=== PATIENT | female | born 1965 | race African-American/Black ===

== ENCOUNTER 2016-11-25 01:29 | Emergency (ER) | payer OTHER ==
[~2016-11-25] VITALS: Ht 165.1 cm; Wt 67.1 kg
[2016-11-25 01:48] VITALS: BP 165/86
[2016-11-25] MEDS ORDERED: traMADol 50 MG TABLET PO ONE (02:15)
[2016-11-25] MEDS ORDERED: IBUPROFEN 600 MG TABLET. PO ONE (02:15)
[2016-11-25] MEDS ORDERED: AZITHROMYCIN 250 MG TABLET. PO ONE (02:15)
[2016-11-25] MEDS ORDERED: TRAM-29 PO (02:29)
[2016-11-25] MEDS ORDERED: AZIT250T PO (02:29)
--- NOTE | 2016-11-25 02:29 | PHYS DOC ---
Past Medical History Past Medical History: High Cholesterol, Hypertension Past Surgical History: Alcohol Use: None Drug Use: None Adult General Chief Complaint Chief Complaint: EARACHE/EAR PAIN HPI HPI Patient is a 51 year old female who presents here today complaining of right ear pain that started earlier today. Patient denies any fevers (patient endorses tactile fevers only) shakes chills nausea vomiting diarrhea chest pain short of breath cough cold runny nose. Patient also complaining of a mild sore throat. Patient denies any trauma to her ear. Patient has any change in her hearing. Patient's past medical history significant for a defibrillator since responded and put in. Patient denies being on any anticoagulants. Patient's physical exam was significant for a significant amount of swelling to her right tympanic membrane with what appears to be supportive otitis media. Patient has no tenderness with palpation to her or call her mastoid. Patient has no mastoid bone tenderness. Patient is no drainage coming from the ear. A/P #1 otitis media. Patient was discharged home after Rocephin 1 g IM and Zithromax/Z-Jay. Patient is clinically hemodynamically stable. Patient was instructed to follow-up with her primary care physician for reevaluation within the next 2-3 days. Started to return to the ER if she starts having any severe headaches fevers or any other concerns. Review of Systems Review of Systems Constitutional: Denies fever or chills [] Eyes: Denies change in visual acuity, redness, or eye pain [] All other review systems are negative except as documented in history of present illness portion Current Medications Current Medications Current Medications Medications (Trade) Dose Ordered Sig/Miriam Start Time Stop Time Status Last Admin Dose Admin Azithromycin (Zithromax) 500 mg 1X ONCE 11/25/16 02:15 11/25/16 02:16 DC 11/25/16 02:36 500 MG Ibuprofen (Motrin) 600 mg 1X ONCE 11/25/16 02:15 11/25/16 02:16 DC 11/25/16 02:32 600 MG Tramadol HCl (Ultram) 50 mg 1X ONCE 11/25/16 02:15 11/25/16 02:16 DC 11/25/16 02:35 50 MG Allergies Allergies Allergies Coded Allergies Type Severity Reaction Last Updated Verified No Known Drug Allergies 11/25/16 No Physical Exam Physical Exam Constitutional: Well developed, well nourished, no acute distress, non-toxic appearance. [] HENT: Normocephalic, atraumatic, bilateral external ears normal, oropharynx moist, no oral exudates, nose normal. [] See above. Tympanic membrane evaluation Eyes: PERRLA, EOMI, conjunctiva normal, no discharge. [] Neck: Normal range of motion, no tenderness, supple, no stridor. [] Cardiovascular:Heart rate regular rhythm, no murmur [] Lungs & Thorax: Bilateral breath sounds clear to auscultation [] Abdomen: Bowel sounds normal, soft, no tenderness, no masses, no pulsatile masses. [] Skin: Warm, dry, no erythema, no rash. [] Back: No tenderness, no CVA tenderness. [] Extremities: No tenderness, no cyanosis, no clubbing, ROM intact, no edema. [] Neurologic: Alert and oriented X 3, normal motor function, normal sensory function, no focal deficits noted. [] Psychologic: Affect normal, judgement normal, mood normal. [] Current Patient Data Vital Signs Vital Signs Date Time Temp Pulse Resp B/P (MAP) Pulse Ox O2 Delivery O2 Flow Rate FiO2 11/25/16 02:35 16 100 Room Air 11/25/16 01:48 98.6 109 98.6 EKG EKG [] Radiology/Procedures Radiology/Procedures [] Course & Med Decision Making Course & Med Decision Making Pertinent Labs and Imaging studies reviewed. (See chart for details) [] Dragon Disclaimer Dragon Disclaimer This electronic medical record was generated, in whole or in part, using a voice recognition dictation system. Departure Departure Impression: Primary Impression: Otitis media, right Disposition: HOME, SELF-CARE Condition: IMPROVED Patient Instructions: Otitis Media, Adult Scripts Azithromycin (ZITHROMAX) 250 Mg Tablet 1 PKG PO UD, #6 TAB Prov: SILVANA MANRIQUEZ MD 11/25/16 Tramadol Hcl (ULTRAM) 50 Mg Tablet 1 TAB PO Q6HRS, #14 TAB Prov: SILVANA MANRIQUEZ MD 11/25/16 Problem Qualifiers Primary Impression: Otitis media, right Otitis media type: suppurative Chronicity: acute Recurrence: not specified as recurrent Spontaneous tympanic membrane rupture: without spontaneous rupture Qualified Codes: H66.001 - Acute suppurative otitis media without spontaneous rupture of ear drum, right ear SILVANA MANRIQUEZ MD November 25, 2016 02:29
== END 2016-11-25 02:56 | disposition home or self-care (01) ==
LOC: ER 01:29
DX: H66.001 Acute suppurative otitis media without spontaneous rupture of ear drum, right ear (principal); E78.00 Pure hypercholesterolemia, unspecified; I10 Essential (primary) hypertension
CPT/HCPCS: 99284; Q0144

== ENCOUNTER 2017-10-23 17:37 | Emergency (ER) | payer OTHER ==
[2017-10-23 18:59] LABS: BILIRUBIN,URINE NEGATIVE (NEG); CLARITY,URINE CLEAR; COLOR,URINE YELLOW; GLUCOSE,URINE NEGATIVE (NEG); NITRITE,URINE NEGATIVE (NEG); PH,URINE 5.5; PROTEIN,URINE NEGATIVE (NEG-TRACE)
[2017-10-23 19:08] LABS: BACTERIA,URINE MODERATE /HPF (0-FEW); RBC,URINE OCC /HPF (0-2); SQUAMOUS EPITHELIAL CELL,UR MANY /LPF
[2017-10-23 19:27] LABS: ADD MAN DIFF? NO
[2017-10-23 19:34] LABS: BASO % 0 % (0-3); EOS # 0.2 x10^3/uL (0.0-0.7); EOS % 2 % (0-3); HEMATOCRIT 36.9 % (36.0-47.0); HEMOGLOBIN 12.4 g/dL (12.0-15.5); LYMPH # 2.5 x10^3/uL (1.0-4.8); LYMPH % 37 % (24-48); MEAN CORPUSCULAR HEMOGLOBIN 30 pg (25-35); MEAN CORPUSCULAR HGB CONC 34 g/dL (31-37); MEAN CORPUSCULAR VOLUME 90 fL (79-100); MONO # 0.4 x10^3/uL (0.0-1.1); MONO % 6 % (0-9); NEUT # 3.6 x10^3uL (1.8-7.7); NEUT % 54 % (31-73); PLATELET COUNT 326 x10^3/uL (140-400); RED BLOOD COUNT 4.12 x10^6/uL (3.50-5.40); RED CELL DISTRIBUTION WIDTH 13.8 % (11.5-14.5); WHITE BLOOD COUNT 6.7 x10^3/uL (4.0-11.0)
[2017-10-23 19:46] LABS: ANION GAP 10 (6-14); BLOOD UREA NITROGEN 9 mg/dL (7-20); CALCIUM 9.9 mg/dL (8.5-10.1); CARBON DIOXIDE 28 mmol/L (21-32); CHLORIDE 105 mmol/L (98-107); CREATININE 0.8 mg/dL (0.6-1.0); GFR 90.4; GLUCOSE 105 mg/dL (70-99); POTASSIUM 3.3 mmol/L (3.5-5.1); SODIUM 143 mmol/L (136-145)
[2017-10-23] MEDS: FAMOTIDINE 20 MG/2 ML VIAL IVP (19:46)
[2017-10-23] MEDS: ONDANSETRON PF 4 MG/2 ML VIAL. IV (19:46)
[2017-10-23] MEDS: IV NORMAL SALINE 1000ML BAG 1,000 ML IV (19:46)
[2017-10-23] MEDS: 0.9 % SODIUM CHLORIDE 10 ML DISP.SYRIN. IV (19:47)
[2017-10-23 19:51] LABS: ALBUMIN 4.1 g/dL (3.4-5.0); ALK PHOS 90 U/L (46-116); ALT (SGPT) 18 U/L (14-59); AST (SGOT) 12 U/L (15-37); DIRECT BILIRUBIN 0.1 mg/dL (0.0-0.2); LIPASE 81 U/L (73-393); TOTAL BILIRUBIN 0.5 mg/dL (0.2-1.0); TOTAL PROTEIN 7.5 g/dL (6.4-8.2)
[2017-10-23 19:53] LABS: TROPONINI < 0.017 ng/mL (0.000-0.055)
[2017-10-23] MEDS ORDERED: CONTRAST GIVEN MC (20:00)
[2017-10-23 20:01] LABS: CKMB MASS < 0.5 ng/mL (0.0-3.6); CREATINE KINASE 64 U/L (26-192)
[2017-10-23] MEDS: IOHEXOL 300 MG/ML 100ML VIAL. IV (20:06)
== END 2017-10-23 21:19 | disposition home or self-care (01) ==
LOC: ER 17:37
DX: N39.0 Urinary tract infection, site not specified (principal); K29.60 Other gastritis without bleeding; I10 Essential (primary) hypertension
CPT/HCPCS: 36415; 74177; 80048; 80076; 81001; 82553; 83690; 84484; 85025; 87086; 93005; 96374; 96375; 96376; 99285-25; J2405; J7030; Q9967; S0028

== ENCOUNTER 2019-03-03 01:24 | Inpatient (IN) | payer BC, OTHER ==
[~2019-03-03] VITALS: Ht 165.1 cm; Wt 61.2 kg
[~2019-03-03 01:24] MED LIST: AZIT250T PO; CIPR500T94 PO; OMEP20TA63 PO; TRAM-48 PO; TRAM1TAB4 PO
[2019-03-03] MEDS ORDERED: KETOROLAC 30 MG/ML VIAL. IV ONE (02:45)
[2019-03-03] MEDS ORDERED: ONDANSETRON PF 4 MG/2 ML VIAL. IV ONE (02:45)
[2019-03-03] MEDS ORDERED: IV NORMAL SALINE 1000ML BAG 1,000 ML IV SCH (02:45)
[2019-03-03 03:14] LABS: BASO % 1 % (0-3); EOS % 0 % (0-3); HEMATOCRIT 39.7 % (36.0-47.0); HEMOGLOBIN 13.5 g/dL (12.0-15.5); LYMPH # 1.1 x10^3/uL (1.0-4.8); LYMPH % 19 % (24-48); MEAN CORPUSCULAR HEMOGLOBIN 31 pg (25-35); MEAN CORPUSCULAR HGB CONC 34 g/dL (31-37); MEAN CORPUSCULAR VOLUME 90 fL (79-100); MONO # 0.2 x10^3/uL (0.0-1.1); MONO % 4 % (0-9); NEUT # 4.6 x10^3/uL (1.8-7.7); NEUT % 77 % (31-73); PLATELET COUNT 319 x10^3/uL (140-400); RED BLOOD COUNT 4.42 x10^6/uL (3.50-5.40); RED CELL DISTRIBUTION WIDTH 13.6 % (11.5-14.5); WHITE BLOOD COUNT 6.1 x10^3/uL (4.0-11.0)
[2019-03-03 03:22] LABS: CALCIUM 10.1 mg/dL (8.5-10.1); CREATININE 0.9 mg/dL (0.6-1.0); GFR 78.7; POTASSIUM 3.6 mmol/L (3.5-5.1)
[2019-03-03 03:29] LABS: ALBUMIN 4.1 g/dL (3.4-5.0); ALBUMIN/GLOBULIN RATIO 1.1 (1.0-1.7); TOTAL BILIRUBIN 1.7 mg/dL (0.2-1.0); TOTAL PROTEIN 7.9 g/dL (6.4-8.2)
[2019-03-03] MEDS ORDERED: PIPERACILLIN/TAZOBACTAM 3.375 GM in IV NORMAL SALINE 50ML 50 ML IV ONE (04:00)
[2019-03-03] MEDS ORDERED: fentaNYL PF VIAL 100 MCG/2 ML VIAL IV PRN (04:00)
[2019-03-03] MEDS ORDERED: ONDANSETRON PF 4 MG/2 ML VIAL. IV PRN (04:00)
--- NOTE | 2019-03-03 04:03 | RAD ---
Right upper quadrant ultrasound dated 03/03/2019. No comparison available. Clinical data indication: Right upper quadrant pain. FINDINGS: Hepatic mass. Intrahepatic biliary tree is normal in caliber. The common bile duct is mildly dilated measuring up to 9 mm diameter. No intraductal filling defect is apparent. Echogenic shadowing foci in the gallbladder lumen consistent with stones. No wall thickening or pericholecystic fluid. Positive Arias's sign. Right kidney measures 9.5 cm in length without hydronephrosis. Left kidney was not imaged. Limited visualized portions of pancreas aorta and IVC are unremarkable. No significant ascites. IMPRESSION: 1. Cholelithiasis and positive sonographic Arias's sign. Acute cholecystitis cannot be excluded. 2. Mild dilation of the extrahepatic biliary tree without discrete filling defect. Could be a normal variant. Correlate with laboratory results. Electronically signed by: Mino Stock MD (03/03/2019 4:00 AM) [facility]
--- NOTE | 2019-03-03 04:12 | PHYS DOC ---
Past Medical History Past Medical History: GERD, High Cholesterol, Hypertension, Other Additional Past Medical Histor: SEASONAL ALLERGIES Past Surgical History: , Other Additional Past Surgical Histo: Left ear sx Alcohol Use: None Drug Use: None Adult General Chief Complaint Chief Complaint: ABDOMINAL PAIN [facility] HPI Patient is a 53 year old female who presents with complaining of abdominal pain. Patient complaining of gradual onset of epigastric and right upper qu adrant pain since yesterday as a constant pain with radiation to her back and associated with nausea. Patient rated her pain as a 10 over 10 and denies shortness of breath, fever and chills, diarrhea and constipation, urinary symptom. Patient denies history of the same pain. Review of Systems Review of Systems Constitutional: Denies fever or chills [] Eyes: Denies change in visual acuity, redness, or eye pain [] HENT: Denies nasal congestion or sore throat [] Respiratory: Denies cough or shortness of breath [] Cardiovascular: No additional information not addressed in HPI [] GI: Reports abdominal pain, nausea, vomiting, bloody stools or diarrhea [] : Denies dysuria or hematuria [] Musculoskeletal: Denies back pain or joint pain [] Integument: Denies rash or skin lesions [] Neurologic: Denies headache, focal weakness or sensory changes [] Endocrine: Denies polyuria or polydipsia [] All other systems were reviewed and found to be within normal limits, except as documented in this note. Current Medications Current Medications Current Medications Medications (Trade) Dose Ordered Sig/[facility] Start Time Stop Time Status Last Admin Dose Admin Ketorolac Tromethamine (Toradol 30mg Vial) 30 mg 1X ONCE 03/03/19 02:45 03/03/19 02:46 DC 03/03/19 03:09 30 MG Ondansetron HCl (Zofran) 4 mg 1X ONCE 03/03/19 02:45 03/03/19 02:46 DC 03/03/19 03:09 4 MG Sodium Chloride 1,000 ml @ 1,000 mls/hr Q1H 03/03/19 02:45 03/03/19 03:44 DC 03/03/19 03:09 1,000 MLS/HR Allergies Allergies Allergies Coded Allergies Type Severity Reaction Last Updated Verified amlodipine Allergy Unknown Swelling 03/03/19 Yes Physical Exam Physical Exam Constitutional: Well developed, well nourished, moderate distress, non-toxic appearance. [] HENT: Normocephalic, atraumatic, oropharynx dry. Eyes: PERRLA, EOMI, conjunctiva normal, no discharge. [] Neck: Normal range of motion, no tenderness, supple, no stridor. [] Cardiovascular:Heart rate regular rhythm, no murmur [] Lungs & Thorax: Bilateral breath sounds clear to auscultation [] Abdomen: Bowel sounds normal, soft, right upper quadrant tenderness and positive Arias sign, no masses, no pulsatile masses. [] Skin: Warm, dry, no erythema, no rash. [] Back: No tenderness, no CVA tenderness. [] Extremities: No tenderness, no cyanosis, no clubbing, ROM intact, no edema. [] Neurologic: Alert and oriented X 3, normal motor function, normal sensory function, no focal deficits noted. [] Psychologic: Affect normal, judgement normal, mood normal. [] Current Patient Data Vital Signs Vital Signs Date Time Temp Pulse Resp B/P (MAP) Pulse Ox O2 Delivery O2 Flow Rate FiO2 03/03/19 03:49 90 139/77 (97) 99 Room Air 03/03/19 01:35 98.2 16 98.2 Lab Values Laboratory Tests Test 03/03/19 02:23 White Blood Count 6.1 x10^3/uL (4.0-11.0) Red Blood Count 4.42 x10^6/uL (3.50-5.40) Hemoglobin 13.5 g/dL (12.0-15.5) Hematocrit 39.7 % (36.0-47.0) Mean Corpuscular Volume 90 fL (79-100) Mean Corpuscular Hemoglobin 31 pg (25-35) Mean Corpuscular Hemoglobin Concent 34 g/dL (31-37) Red Cell Distribution Width 13.6 % (11.5-14.5) Platelet Count 319 x10^3/uL (140-400) Neutrophils (%) (Auto) 77 % (31-73) H Lymphocytes (%) (Auto) 19 % (24-48) L Monocytes (%) (Auto) 4 % (0-9) Eosinophils (%) (Auto) 0 % (0-3) Basophils (%) (Auto) 1 % (0-3) Neutrophils # (Auto) 4.6 x10^3/uL (1.8-7.7) Lymphocytes # (Auto) 1.1 x10^3/uL (1.0-4.8) Monocytes # (Auto) 0.2 x10^3/uL (0.0-1.1) Eosinophils # (Auto) 0.0 x10^3/uL (0.0-0.7) Basophils # (Auto) 0.0 x10^3/uL (0.0-0.2) Sodium Level 140 mmol/L (136-145) Potassium Level 3.6 mmol/L (3.5-5.1) Chloride Level 103 mmol/L (98-107) Carbon Dioxide Level 28 mmol/L (21-32) Anion Gap 9 (6-14) Blood Urea Nitrogen 9 mg/dL (7-20) Creatinine 0.9 mg/dL (0.6-1.0) Estimated GFR (Cockcroft-Gault) 78.7 BUN/Creatinine Ratio 10 (6-20) Glucose Level 124 mg/dL (70-99) H Calcium Level 10.1 mg/dL (8.5-10.1) Total Bilirubin 1.7 mg/dL (0.2-1.0) H Aspartate Amino Transferase (AST) 350 U/L (15-37) H Alanine Aminotransferase (ALT) 260 U/L (14-59) H Alkaline Phosphatase 91 U/L (46-116) Creatine Kinase 81 U/L (26-192) Total Protein 7.9 g/dL (6.4-8.2) Albumin 4.1 g/dL (3.4-5.0) Albumin/Globulin Ratio 1.1 (1.0-1.7) Lipase 59 U/L (73-393) L Laboratory Tests 03/03/19 02:23 Laboratory Tests 03/03/19 02:23 EKG EKG [] Radiology/Procedures Radiology/Procedures [][facility] [address] [place], [place] [id number] IMAGING REPORT Signed PATIENT: SHAYNA REDNACCOUNT: [id number] : 1965 LOCATION: ER AGE: 53 SEX: F EXAM STATUS: REG ER ORD. PHYSICIAN: ALEXY FONTANEZ MD REASON: upper quadrant pain PROCEDURE: ABDOMEN LTD Right upper quadrant ultrasound dated 03/03/2019. No comparison available. Clinical data indication: Right upper quadrant pain. FINDINGS: Hepatic mass. Intrahepatic biliary tree is normal in caliber. The common bile duct is mildly dilated measuring up to 9 mm diameter. No intraductal filling defect is apparent. Echogenic shadowing foci in the gallbladder lumen consistent with stones. No wall thickening or pericholecystic fluid. Positive Arias's sign. Right kidney measures 9.5 cm in length without hydronephrosis. Left kidney was not imaged. Limited visualized portions of pancreas aorta and IVC are unremarkable. No significant ascites. IMPRESSION: 1. Cholelithiasis and positive sonographic Arias's sign. Acute cholecystitis cannot be excluded. 2. Mild dilation of the extrahepatic biliary tree without discrete filling defect. Could be a normal variant. Correlate with laboratory results. Electronically signed by: Mino Stock MD (03/03/2019 4:00 AM) [facility] DICTATED and SIGNED BY: MINO STOCK MD DATE: 03/03/19 0400 Course & Med Decision Making Course & Med Decision Making Pertinent Labs and Imaging studies reviewed. (See chart for details) Patient ER showed 53-year-old female patient with complaining of right upper quadrant pain. Patient had positive morphine site and elevation of liver function tests and positive sonographic Arias sign with inflammation of one of gallbladder. Patient was informed of the test results and plan of care for admission and possible surgery. Patient wanted to go home and then change her mind and decided to stay and wanted to take antibiotic without surgery. Patient requiring admission for further evaluation and treatment. Discussed with Dr. Cao who is in agreement with admission. Discussed findings and plan with patient and family, who acknowledge understanding and agreement. Dragon Disclaimer Dragon Disclaimer This electronic medical record was generated, in whole or in part, using a voice recognition dictation system. Departure Departure Impression: Primary Impression: Acute cholecystitis Disposition: 09 ADMITTED INPATIENT (at 0359) Admitting Physician: Dio Cao (accepted admission at 0259) Condition: IMPROVED Referrals: NGHIA SALEH MD (PCP) ALEXY FONTANEZ MD Mar 03, 2019 04:12
[2019-03-03] MEDS: IV NORMAL SALINE 1000ML BAG 1,000 ML IV SCH ×2 (04:54→09:48)
[2019-03-03 05:20] VITALS: BP 129/73
[2019-03-03] MEDS ORDERED: LOSA-73 PO (06:46)
[2019-03-03] MEDS ORDERED: MULT1TAB52 PO (06:46)
[2019-03-03] MEDS ORDERED: CHOL100013 PO (06:46)
[2019-03-03] MEDS ORDERED: ASPI81TA50 PO (06:46)
[2019-03-03 07:00] VITALS: BP 145/72
[2019-03-03 11:00] VITALS: BP 136/74
--- NOTE | 2019-03-03 11:12 | PDOC1 ---
History and Physical Date of Admission Date of Admission 03/03/19 Identification/Chief Complaint Chief Complaint Abdominal pain Source Source: Patient History of Present Illness History of Present Illness Pt states that she started having RUQ pain yesterday around 3-3:30pm after getting off of work. She thought it might be related to her acid reflux as she had not taken her zantac yet that day. Took it when she got home and it did not really seem to help. Ate some chili hamburger helper for dinner and pain started worsening. Pt says that she was not wanting to come to the hospital but around 1am, she still was unable to sleep because of the pain and it continued to intensify. Pt was found to have cholelithiasis with +Arias's sign. Pt not wanting to have surgery and is hoping to go home tonight. Pain improved with pain medication. Past Medical History Cardiovascular: HTN Pulmonary: No pertinent hx GI: GERD Heme/Onc: No pertinent hx Hepatobiliary: No pertinent hx Psych: No pertinent hx Rheumatologic: No pertinent hx Infectious disease: No pertinent hx ENT: No pertinent hx Renal/: No pertinent hx Endocrine: No pertinent hx Dermatology: No pertinent hx Past Surgical History Past Surgical History: Family History Family History: Cancer Social History Smoke: Quit ALCOHOL: none Drugs: None Current Medications Current Medications Current Medications Medications (Trade) Dose Ordered Sig/Miriam Start Time Stop Time Status Last Admin Dose Admin Fentanyl Citrate (Fentanyl 2ml Vial) 50 mcg PRN Q1HR PRN 03/03/19 04:00 03/03/19 09:00 DC Ketorolac Tromethamine (Toradol 30mg Vial) 30 mg 1X ONCE 03/03/19 02:45 03/03/19 02:46 DC 03/03/19 03:09 30 MG Metronidazole 100 ml @ 100 mls/hr 1X ONCE 03/03/19 04:00 03/03/19 04:59 DC 03/03/19 09:49 100 MLS/HR Ondansetron HCl (Zofran) 4 mg PRN Q8HRS PRN 03/03/19 04:00 03/03/19 09:00 DC Piperacillin Sod/ Tazobactam Sod 3.375 gm/Sodium Chloride 50 ml @ 100 mls/hr 1X ONCE 03/03/19 04:00 03/03/19 04:29 DC 03/03/19 04:58 100 MLS/HR Sodium Chloride 1,000 ml @ 150 mls/hr Q6H40M 03/03/19 04:00 03/04/19 03:59 03/03/19 09:49 150 MLS/HR Allergies Allergies Allergies Coded Allergies Type Severity Reaction Last Updated Verified amlodipine Allergy Unknown Swelling 03/03/19 Yes ciprofloxacin Allergy Unknown Unknown 03/03/19 Yes ROS Review of System CONSTITUTIONAL: No fever or chills EYES: No recent changes SKIN: No rash or itching CARDIOVASCULAR: No chest pain, syncope, palpitations, or edema RESPIRATORY: No SOB or cough GASTROINTESTINAL: No nausea, vomiting, +RUQ pain NEUROLOGICAL: No headaches or weakness ENDOCRINE: No cold or heat intolerance GENITOURINARY: No urgency or frequency of urination MUSCULOSKELETAL: No back pain or joint pain LYMPHATICS: No enlarged lymph nodes PSYCHIATRIC: No anxiety or depression Physical Exam Physical Exam GEN.: No apparent distress. Alert and oriented. HEENT: Head is normocephalic, atraumatic NECK: Supple. LUNGS: Clear to auscultation. HEART: RRR, S1, S2 present. Peripheral pulses intact ABDOMEN: Soft, nontender. Positive bowel sounds. EXTREMITIES: Without any cyanosis. NEUROLOGIC: Normal speech, normal tone PSYCHIATRIC: Normal affect, normal mood. SKIN: No ulcerations Vitals Vitals Vital Signs Date Time Temp Pulse Resp B/P (MAP) Pulse Ox O2 Delivery O2 Flow Rate FiO2 03/03/19 07:00 97.9 69 18 145/72 (96) 97 Room Air 97.9 Labs Labs Laboratory Tests Test 03/03/19 02:23 White Blood Count 6.1 x10^3/uL (4.0-11.0) Red Blood Count 4.42 x10^6/uL (3.50-5.40) Hemoglobin 13.5 g/dL (12.0-15.5) Hematocrit 39.7 % (36.0-47.0) Mean Corpuscular Volume 90 fL (79-100) Mean Corpuscular Hemoglobin 31 pg (25-35) Mean Corpuscular Hemoglobin Concent 34 g/dL (31-37) Red Cell Distribution Width 13.6 % (11.5-14.5) Platelet Count 319 x10^3/uL (140-400) Neutrophils (%) (Auto) 77 % (31-73) Lymphocytes (%) (Auto) 19 % (24-48) Monocytes (%) (Auto) 4 % (0-9) Eosinophils (%) (Auto) 0 % (0-3) Basophils (%) (Auto) 1 % (0-3) Neutrophils # (Auto) 4.6 x10^3/uL (1.8-7.7) Lymphocytes # (Auto) 1.1 x10^3/uL (1.0-4.8) Monocytes # (Auto) 0.2 x10^3/uL (0.0-1.1) Eosinophils # (Auto) 0.0 x10^3/uL (0.0-0.7) Basophils # (Auto) 0.0 x10^3/uL (0.0-0.2) Sodium Level 140 mmol/L (136-145) Potassium Level 3.6 mmol/L (3.5-5.1) Chloride Level 103 mmol/L (98-107) Carbon Dioxide Level 28 mmol/L (21-32) Anion Gap 9 (6-14) Blood Urea Nitrogen 9 mg/dL (7-20) Creatinine 0.9 mg/dL (0.6-1.0) Estimated GFR (Cockcroft-Gault) 78.7 BUN/Creatinine Ratio 10 (6-20) Glucose Level 124 mg/dL (70-99) Calcium Level 10.1 mg/dL (8.5-10.1) Total Bilirubin 1.7 mg/dL (0.2-1.0) Aspartate Amino Transf (AST/SGOT) 350 U/L (15-37) Alanine Aminotransferase (ALT/SGPT) 260 U/L (14-59) Alkaline Phosphatase 91 U/L (46-116) Creatine Kinase 81 U/L (26-192) Total Protein 7.9 g/dL (6.4-8.2) Albumin 4.1 g/dL (3.4-5.0) Albumin/Globulin Ratio 1.1 (1.0-1.7) Lipase 59 U/L (73-393) Laboratory Tests Test 03/03/19 02:23 White Blood Count 6.1 x10^3/uL (4.0-11.0) Red Blood Count 4.42 x10^6/uL (3.50-5.40) Hemoglobin 13.5 g/dL (12.0-15.5) Hematocrit 39.7 % (36.0-47.0) Mean Corpuscular Volume 90 fL (79-100) Mean Corpuscular Hemoglobin 31 pg (25-35) Mean Corpuscular Hemoglobin Concent 34 g/dL (31-37) Red Cell Distribution Width 13.6 % (11.5-14.5) Platelet Count 319 x10^3/uL (140-400) Neutrophils (%) (Auto) 77 % (31-73) Lymphocytes (%) (Auto) 19 % (24-48) Monocytes (%) (Auto) 4 % (0-9) Eosinophils (%) (Auto) 0 % (0-3) Basophils (%) (Auto) 1 % (0-3) Neutrophils # (Auto) 4.6 x10^3/uL (1.8-7.7) Lymphocytes # (Auto) 1.1 x10^3/uL (1.0-4.8) Monocytes # (Auto) 0.2 x10^3/uL (0.0-1.1) Eosinophils # (Auto) 0.0 x10^3/uL (0.0-0.7) Basophils # (Auto) 0.0 x10^3/uL (0.0-0.2) Sodium Level 140 mmol/L (136-145) Potassium Level 3.6 mmol/L (3.5-5.1) Chloride Level 103 mmol/L (98-107) Carbon Dioxide Level 28 mmol/L (21-32) Anion Gap 9 (6-14) Blood Urea Nitrogen 9 mg/dL (7-20) Creatinine 0.9 mg/dL (0.6-1.0) Estimated GFR (Cockcroft-Gault) 78.7 BUN/Creatinine Ratio 10 (6-20) Glucose Level 124 mg/dL (70-99) Calcium Level 10.1 mg/dL (8.5-10.1) Total Bilirubin 1.7 mg/dL (0.2-1.0) Aspartate Amino Transf (AST/SGOT) 350 U/L (15-37) Alanine Aminotransferase (ALT/SGPT) 260 U/L (14-59) Alkaline Phosphatase 91 U/L (46-116) Creatine Kinase 81 U/L (26-192) Total Protein 7.9 g/dL (6.4-8.2) Albumin 4.1 g/dL (3.4-5.0) Albumin/Globulin Ratio 1.1 (1.0-1.7) Lipase 59 U/L (73-393) VTE Prophylaxis Ordered VTE Prophylaxis Devices: Yes VTE Pharmacological Prophylaxi: No Assessment/Plan Assessment/Plan Pt is a 53yo AAF admitted for symptomatic cholelithiasis 1)Symptomatic cholelithiasis- normal WBC, afebrile. Pt with elevated liver enzymes and mild dilation of extrahepatic biliary tree. Pt is not wanting surgery and is wanting to go home tonight. GI consulted. Pain improved with pain medication 2)HTN- will continue pt's Losartan 50mg 3)Hyperglycemia- HbA1C pending PRINCESS JOHNSON MD Mar 03, 2019 11:12
[2019-03-03] MEDS ORDERED: oxyCODONE IR 5 MG TABLET PO PRN (11:15)
[2019-03-03] MEDS ORDERED: LOSARTAN POTASSIUM 50 MG TABLET. PO SCH (11:15)
--- NOTE | 2019-03-03 13:13 | PDOC2 ---
GI CONSULT Reason For Consult: symptomatic cholelithiasis, dilated biliary duct, no surgery HPI: HPI: 53 y/o female admitted through ER. Gradual onset of RUQ and epigastric burning yesterday, no radiation, worse w/ eating, and associated w/ vomiting x 1. Bili 1.7, AST 350, ALT 260, AP 91, normal lipase Cholelithiasis w/ +Arias's and 9mm CBD on US. She does not wish to pursue cholecystectomy. H/o "silent GERD" diagnosed by ENT who she saw for fullness in her ears. For those symptoms or "bubbling" in upper abdomen, takes Zantac regularly. No dysphagia, chronic n/v or abd pain, diarrhea, constipation, hematochezia, melena, change in appetite, or weight loss. No previous EGD. Reportedly normal colonoscopy in [place] ~10 years ago. No liver, pancreas, or PUD history. Occasional ibuprofen. PMH: PMH: GERD, HTN, HLD, allergic rhinitis left ear surgery, x 2 FH: Family History: Cancer (renal) Social History: Smoke: Quit ALCOHOL: none Drugs: None ROS: GEN: Denies fevers, chills, sweats HEENT: Denies blurred vision, sore throat CV: Denies chest pain RESP: Denies shortness of air, cough GI: Per HPI : Denies hematuria, dysuria ENDO: Denies weight changes NEURO: Denies confusion, dizziness MSK: Denies weakness, joint pain/swelling SKIN: Denies jaundice, pruritus Vitals: Vitals: Vital Signs Date Time Temp Pulse Resp B/P (MAP) Pulse Ox O2 Delivery O2 Flow Rate FiO2 03/03/19 07:00 97.9 69 18 145/72 (96) 97 Room Air 97.9 Labs: Labs: Laboratory Tests Test 03/03/19 02:23 White Blood Count 6.1 x10^3/uL (4.0-11.0) Red Blood Count 4.42 x10^6/uL (3.50-5.40) Hemoglobin 13.5 g/dL (12.0-15.5) Hematocrit 39.7 % (36.0-47.0) Mean Corpuscular Volume 90 fL (79-100) Mean Corpuscular Hemoglobin 31 pg (25-35) Mean Corpuscular Hemoglobin Concent 34 g/dL (31-37) Red Cell Distribution Width 13.6 % (11.5-14.5) Platelet Count 319 x10^3/uL (140-400) Neutrophils (%) (Auto) 77 % (31-73) Lymphocytes (%) (Auto) 19 % (24-48) Monocytes (%) (Auto) 4 % (0-9) Eosinophils (%) (Auto) 0 % (0-3) Basophils (%) (Auto) 1 % (0-3) Neutrophils # (Auto) 4.6 x10^3/uL (1.8-7.7) Lymphocytes # (Auto) 1.1 x10^3/uL (1.0-4.8) Monocytes # (Auto) 0.2 x10^3/uL (0.0-1.1) Eosinophils # (Auto) 0.0 x10^3/uL (0.0-0.7) Basophils # (Auto) 0.0 x10^3/uL (0.0-0.2) Sodium Level 140 mmol/L (136-145) Potassium Level 3.6 mmol/L (3.5-5.1) Chloride Level 103 mmol/L (98-107) Carbon Dioxide Level 28 mmol/L (21-32) Anion Gap 9 (6-14) Blood Urea Nitrogen 9 mg/dL (7-20) Creatinine 0.9 mg/dL (0.6-1.0) Estimated GFR (Cockcroft-Gault) 78.7 BUN/Creatinine Ratio 10 (6-20) Glucose Level 124 mg/dL (70-99) Calcium Level 10.1 mg/dL (8.5-10.1) Total Bilirubin 1.7 mg/dL (0.2-1.0) Aspartate Amino Transf (AST/SGOT) 350 U/L (15-37) Alanine Aminotransferase (ALT/SGPT) 260 U/L (14-59) Alkaline Phosphatase 91 U/L (46-116) Creatine Kinase 81 U/L (26-192) Total Protein 7.9 g/dL (6.4-8.2) Albumin 4.1 g/dL (3.4-5.0) Albumin/Globulin Ratio 1.1 (1.0-1.7) Lipase 59 U/L (73-393) Allergies: Coded Allergies: amlodipine (Verified Allergy, Unknown, Swelling , 03/03/19) ciprofloxacin (Verified Allergy, Unknown, Unknown, 03/03/19) Medications: Current Medications Medications (Trade) Dose Ordered Sig/Miriam Route PRN Reason Start Time Stop Time Status Last Admin Dose Admin Sodium Chloride 1,000 ml @ 1,000 mls/hr Q1H IV 03/03/19 02:45 03/03/19 03:44 DC 03/03/19 03:09 Ondansetron HCl (Zofran) 4 mg 1X ONCE IV 03/03/19 02:45 03/03/19 02:46 DC 03/03/19 03:09 Ketorolac Tromethamine (Toradol 30mg Vial) 30 mg 1X ONCE IV 03/03/19 02:45 03/03/19 02:46 DC 03/03/19 03:09 Piperacillin Sod/ Tazobactam Sod 3.375 gm/Sodium Chloride 50 ml @ 100 mls/hr 1X ONCE IV 03/03/19 04:00 03/03/19 04:29 DC 03/03/19 04:58 Metronidazole 100 ml @ 100 mls/hr 1X ONCE IV 03/03/19 04:00 03/03/19 04:59 DC 03/03/19 09:49 Sodium Chloride 1,000 ml @ 150 mls/hr Q6H40M IV 03/03/19 04:00 03/04/19 03:59 03/03/19 09:49 Imaging: Imaging: Abd US FINDINGS: Hepatic mass. Intrahepatic biliary tree is normal in caliber. The common bile duct is mildly dilated measuring up to 9 mm diameter. No intraductal filling defect is apparent. Echogenic shadowing foci in the gallbladder lumen consistent with stones. No wall thickening or pericholecystic fluid. Positive Arias's sign. Right kidney measures 9.5 cm in length without hydronephrosis. Left kidney was not imaged. Limited visualized portions of pancreas aorta and IVC are unremarkable. No sig nificant ascites. IMPRESSION: 1. Cholelithiasis and positive sonographic Arias's sign. Acute cholecystitis cannot be excluded. 2. Mild dilation of the extrahepatic biliary tree without discrete filling defect. Could be a normal variant. Correlate with laboratory results. PE: GEN: NAD - and mother present HEENT: Atraumatic, PERRL LUNGS: CTAB HEART: RRR ABD: NABS, S/ND/NT EXTREMITY: No edema SKIN: No rashes, no jaundice NEURO/PSYCH: A & O �3 A/P: A/P: RUQ/epigastric pain, vomiting - resolved Abnormal LFTs Cholelithiasis, dilated CBD GERD CRC screen - normal colonoscopy 10 years ago -- Dr. Easley to see later. I did explain ERCP procedure along w/ rationale of cholecystectomy/IOC. Add acid-electrical maintenance technician. Asked nurse to clarify US results w/ radiology - "hepatic mass?" When we spoke, she says Dr. Cao plans to discharge per patient's request. Hopefully will stay until Dr. Easley sees her this afternoon. CORNELL CORDERO Mar 03, 2019 13:13
[2019-03-03 15:00] VITALS: BP 133/66
[2019-03-03] MEDS ORDERED: AMOX500T PO (16:21)
--- NOTE | 2019-03-03 16:48 | PDOC3 ---
Discharge Summary Brief Hospital Course Ms. Ureña is a 53 old [sex] who presented with [ ] Discharge Medications Current Medications Sodium Chloride 1,000 ml @ 1,000 mls/hr Q1H IV Last administered on 03/03/19at 03:09; Start 03/03/19 at 02:45; Stop 03/03/19 at 03:44; Status DC Ondansetron HCl (Zofran) 4 mg 1X ONCE IV Last administered on 03/03/19at 03:09; Start 03/03/19 at 02:45; Stop 03/03/19 at 02:46; Status DC Ketorolac Tromethamine (Toradol 30mg Vial) 30 mg 1X ONCE IV Last administered on 03/03/19at 03:09; Start 03/03/19 at 02:45; Stop 03/03/19 at 02:46; Status DC Piperacillin Sod/ Tazobactam Sod 3.375 gm/Sodium Chloride 50 ml @ 100 mls/hr 1X ONCE IV Last administered on 03/03/19at 04:58; Start 03/03/19 at 04:00; Stop 03/03/19 at 04:29; Status DC Metronidazole 100 ml @ 100 mls/hr 1X ONCE IV Last administered on 03/03/19at 09:49; Start 03/03/19 at 04:00; Stop 03/03/19 at 04:59; Status DC Ondansetron HCl (Zofran) 4 mg PRN Q8HRS PRN IV NAUSEA/VOMITING; Start 03/03/19 at 04:00; Stop 03/03/19 at 09:00; Status DC Fentanyl Citrate (Fentanyl 2ml Vial) 50 mcg PRN Q1HR PRN IV PAIN; Start 03/03/19 at 04:00; Stop 03/03/19 at 09:00; Status DC Sodium Chloride 1,000 ml @ 150 mls/hr Q6H40M IV Last administered on 03/03/19at 09:49; Start 03/03/19 at 04:00; Stop 03/04/19 at 03:59 Oxycodone HCl (Roxicodone) 5 mg PRN Q6HRS PRN PO PAIN; Start 03/03/19 at 11:15 Losartan Potassium (Cozaar) 50 mg DAILY PO ; Start 03/03/19 at 11:15 Pantoprazole Sodium (PROTONIX VIAL for IV PUSH) 40 mg DAILYAC IVP ; Start 03/04/19 at 07:30 Active Scripts Active Reported Amoxicillin 500 Mg Tablet 1 Tab PO TID 7 Days Vitamin D (Cholecalciferol (Vitamin D3)) 1,000 Unit Capsule 1 Cap PO DAILY Aspir-Low (Aspirin) 81 Mg Tablet.dr 1 Tab PO DAILY Multivitamins (Multivitamin) 1 Each Tablet 1 Tab PO DAILY Losartan Potassium 50 Mg Tablet 50 Mg PO DAILY Vital Signs Vital Signs Date Time Temp Pulse Resp B/P (MAP) Pulse Ox O2 Delivery O2 Flow Rate FiO2 03/03/19 15:00 98.2 72 17 133/66 (88) 97 Room Air 98.2 Labs Laboratory Tests Test 03/03/19 02:23 White Blood Count 6.1 x10^3/uL (4.0-11.0) Red Blood Count 4.42 x10^6/uL (3.50-5.40) Hemoglobin 13.5 g/dL (12.0-15.5) Hematocrit 39.7 % (36.0-47.0) Mean Corpuscular Volume 90 fL (79-100) Mean Corpuscular Hemoglobin 31 pg (25-35) Mean Corpuscular Hemoglobin Concent 34 g/dL (31-37) Red Cell Distribution Width 13.6 % (11.5-14.5) Platelet Count 319 x10^3/uL (140-400) Neutrophils (%) (Auto) 77 % (31-73) Lymphocytes (%) (Auto) 19 % (24-48) Monocytes (%) (Auto) 4 % (0-9) Eosinophils (%) (Auto) 0 % (0-3) Basophils (%) (Auto) 1 % (0-3) Neutrophils # (Auto) 4.6 x10^3/uL (1.8-7.7) Lymphocytes # (Auto) 1.1 x10^3/uL (1.0-4.8) Monocytes # (Auto) 0.2 x10^3/uL (0.0-1.1) Eosinophils # (Auto) 0.0 x10^3/uL (0.0-0.7) Basophils # (Auto) 0.0 x10^3/uL (0.0-0.2) Sodium Level 140 mmol/L (136-145) Potassium Level 3.6 mmol/L (3.5-5.1) Chloride Level 103 mmol/L (98-107) Carbon Dioxide Level 28 mmol/L (21-32) Anion Gap 9 (6-14) Blood Urea Nitrogen 9 mg/dL (7-20) Creatinine 0.9 mg/dL (0.6-1.0) Estimated GFR (Cockcroft-Gault) 78.7 BUN/Creatinine Ratio 10 (6-20) Glucose Level 124 mg/dL (70-99) Calcium Level 10.1 mg/dL (8.5-10.1) Total Bilirubin 1.7 mg/dL (0.2-1.0) Aspartate Amino Transf (AST/SGOT) 350 U/L (15-37) Alanine Aminotransferase (ALT/SGPT) 260 U/L (14-59) Alkaline Phosphatase 91 U/L (46-116) Creatine Kinase 81 U/L (26-192) Total Protein 7.9 g/dL (6.4-8.2) Albumin 4.1 g/dL (3.4-5.0) Albumin/Globulin Ratio 1.1 (1.0-1.7) Lipase 59 U/L (73-393) Laboratory Tests Test 03/03/19 02:23 White Blood Count 6.1 x10^3/uL (4.0-11.0) Red Blood Count 4.42 x10^6/uL (3.50-5.40) Hemoglobin 13.5 g/dL (12.0-15.5) Hematocrit 39.7 % (36.0-47.0) Mean Corpuscular Volume 90 fL (79-100) Mean Corpuscular Hemoglobin 31 pg (25-35) Mean Corpuscular Hemoglobin Concent 34 g/dL (31-37) Red Cell Distribution Width 13.6 % (11.5-14.5) Platelet Count 319 x10^3/uL (140-400) Neutrophils (%) (Auto) 77 % (31-73) Lymphocytes (%) (Auto) 19 % (24-48) Monocytes (%) (Auto) 4 % (0-9) Eosinophils (%) (Auto) 0 % (0-3) Basophils (%) (Auto) 1 % (0-3) Neutrophils # (Auto) 4.6 x10^3/uL (1.8-7.7) Lymphocytes # (Auto) 1.1 x10^3/uL (1.0-4.8) Monocytes # (Auto) 0.2 x10^3/uL (0.0-1.1) Eosinophils # (Auto) 0.0 x10^3/uL (0.0-0.7) Basophils # (Auto) 0.0 x10^3/uL (0.0-0.2) Sodium Level 140 mmol/L (136-145) Potassium Level 3.6 mmol/L (3.5-5.1) Chloride Level 103 mmol/L (98-107) Carbon Dioxide Level 28 mmol/L (21-32) Anion Gap 9 (6-14) Blood Urea Nitrogen 9 mg/dL (7-20) Creatinine 0.9 mg/dL (0.6-1.0) Estimated GFR (Cockcroft-Gault) 78.7 BUN/Creatinine Ratio 10 (6-20) Glucose Level 124 mg/dL (70-99) Calcium Level 10.1 mg/dL (8.5-10.1) Total Bilirubin 1.7 mg/dL (0.2-1.0) Aspartate Amino Transf (AST/SGOT) 350 U/L (15-37) Alanine Aminotransferase (ALT/SGPT) 260 U/L (14-59) Alkaline Phosphatase 91 U/L (46-116) Creatine Kinase 81 U/L (26-192) Total Protein 7.9 g/dL (6.4-8.2) Albumin 4.1 g/dL (3.4-5.0) Albumin/Globulin Ratio 1.1 (1.0-1.7) Lipase 59 U/L (73-393) Allergies Allergies Coded Allergies Type Severity Reaction Last Updated Verified amlodipine Allergy Unknown Swelling 03/03/19 Yes ciprofloxacin Allergy Unknown Unknown 03/03/19 Yes PRINCESS JOHNSON MD Mar 03, 2019 16:48
--- NOTE | 2019-03-03 17:36 | NUR ---
The patient, ABUNDIO RED, 53 y/o, F admitted by PRINCESS JOHNSON MD, was given written information regarding hospital policies, unit procedures and contact persons. Valuables were checked and logged by bowling ball grader and marker RNYahaira. Medications administered not logged:(unable to chart) Fentanyl 50 mcg 0856: order dc'd at 0900 oxycodone IR 5mg tab 1115 oxycodone IR 5mg tab 1715 Pt requests to be discharged today. States she does not want to be seen by Dr. Easley, she will go home and manage on her own. Relayed info to Dr. Johnson. Dr. Johnson orders d/c to home w/ self care. Rx for pain medication at manager front of her medical office. Dr. Johnson recommends pt wait to see Dr. Easley for ABT rx since she is allergic to cipro. Info relayed to pt. Pt agrees to stay and see Dr. Easley. Rx given to pt. Abd U/S findings clarified by radiologist at [facility]. No hepatic mass. Addendum to be added. Pt given D/C summary, rx, education, follow up and d/c instructions. Pt and spouse verbalize understanding. Pt walked out by staff and spouse, d/c to home w/ self care , via private vehicle. Pt belongings with pt.
[2019-03-04 00:08] LABS: HEMOGLOBIN A1C 5.2 % (4.8-5.6)
[2019-03-04] MEDS ORDERED: PANTOPRAZOLE IV PUSH 40 MG VIAL. IVP SCH (07:30)
== END 2019-03-03 17:48 | disposition home or self-care (01) | DRG 446 ==
LOC: ER 01:24 → 5 NORTH 03:52
PROVIDERS: ADMIT Family Medicine; ATTEND Family Medicine
DX: K80.00 Calculus of gallbladder with acute cholecystitis without obstruction (principal); I10 Essential (primary) hypertension; E78.5 Hyperlipidemia, unspecified; E78.00 Pure hypercholesterolemia, unspecified; R73.9 Hyperglycemia, unspecified; J30.9 Allergic rhinitis, unspecified; K21.9 Gastro-esophageal reflux disease without esophagitis; Z98.891 History of uterine scar from previous surgery; Z80.51 Family history of malignant neoplasm of kidney; Z88.1 Allergy status to other antibiotic agents; Z88.8 Allergy status to other drugs, medicaments and biological substances
CPT/HCPCS: 36415; 76705; 80053; 82550; 83036; 83690; 85025; J1885; J2405; J2543; J3490; J7030; G0378

== ENCOUNTER → 2019-08-21 | Day surgery (SDC) | payer BC ==
[~2019-08-21] MED LIST changes: +AMOX500T PO; +ASPI81TA50 PO; +CHOL100013 PO; +IV RINGERS,LACTATED 1000ML 1,000 ML IV ONE; +LIDOCAINE 2% PF 5 ML VIAL. ONE; +LOSA-73 PO; +MULT1TAB52 PO; +PROPOFOL 40 ML IV ONE
[2019-08-21 10:30] VITALS: BP 113/70
--- NOTE | 2019-08-24 15:07 | PATHOLOGY ---
[facility] Accession Number: [id number] . 01 Material submitted: . colon - DESCENDING COLON POLYP BIOPSY. Modifiers: descending . 01 Clinical history: . CRC screen . 02 Diagnosis: Colon biopsies, descending colon polyp: - Tubular adenoma (1). - Hyperplastic polyp (1). ([facility] 08/24/2019) [facility] 08/24/2019 0911 Local . 02 Comment: There is no high-grade dysplasia or evidence of malignancy. ([facility] 08/24/2019) . 02 Electronically signed: . Heladio Vargas MD, Pathologist NPI- [id number] . 01 Gross description: . The specimen is received in formalin, labeled "Kate Ureña, descending colon polyp biopsy". Received are two segments of pale ruiz soft tissue ranging in size from 0.4 to 0.5 cm in maximum dimensions. The specimen is submitted entirely in cassette A1. ([facility]; 08/21/2019) QAC/QAC 08/21/2019 1724 Local . 02 Pathologist provided ICD-10: D12.4, K63.5 . 02 CPT . 701938 Specimen Comment: A courtesy copy of this report has been sent to [phone], [phone] Specimen Comment: [id number] Specimen Comment: Report sent to and Specimen Comment: A duplicate report has been generated due to demographic updates. Performed at: 01 [facility] [address] [facility] [address], [place] [id number] MD Ted Velasquez MD Phone: [phone] Performed at: 02 [facility] [address] [place], [place] [id number] MD Heladio Vargas MD Phone: [phone]
== END | disposition home or self-care (01) ==
LOC: ENDOS 08:27
PROVIDERS: ATTEND Internal Medicine Gastroenterology
DX: K59.00 Constipation, unspecified (principal); D12.4 Benign neoplasm of descending colon; K64.0 First degree hemorrhoids; K63.89 Other specified diseases of intestine; K21.9 Gastro-esophageal reflux disease without esophagitis; F17.210 Nicotine dependence, cigarettes, uncomplicated; E78.5 Hyperlipidemia, unspecified; I10 Essential (primary) hypertension; E78.00 Pure hypercholesterolemia, unspecified; Z82.49 Family history of ischemic heart disease and other diseases of the circulatory system; Z79.899 Other long term (current) drug therapy; Z98.890 Other specified postprocedural states; Z79.82 Long term (current) use of aspirin; Z88.1 Allergy status to other antibiotic agents
CPT/HCPCS: 45380; 88305; J2001; J2704